=== PATIENT | male | born 1970 | race Caucasian/White ===

== ENCOUNTER 2019-07-27 05:30 | Inpatient (IN) | payer OTHER ==
[~2019-07-27] VITALS: Ht 185.4 cm; Wt 148.2 kg
[~2019-07-27 05:30] MED LIST: CeFAZolin 2 GM/DEXTROSE 50 ML IV ONE; RINGERS SOLUTION,LACTATED 1,000 ML IV ONE
[2019-07-27] MEDS ORDERED: CeFAZolin 2 GM/DEXTROSE 50 ML IV ONE (06:00)
[2019-07-27] MEDS ORDERED: RINGERS SOLUTION,LACTATED 1,000 ML IV ONE (06:00)
[2019-07-27] MEDS ORDERED: AMLO1TAB15 PO (06:12)
[2019-07-27 06:17] LABS: BASOPHILS % (AUTO) 1.2 % (0.0-2.0); EOSINOPHILS % (AUTO) 2.6 % (1.0-6.0); HEMATOCRIT 42.2 % (41-53); HEMOGLOBIN 14.9 g/dL (13.5-17.5); LYMPHOCYTES # (AUTO) 1.3 K/uL (1.0-4.8); LYMPHOCYTES % (AUTO) 36.6 % (22.0-44.0); MEAN CORPUSCULAR HGB CONC 35.2 G/dL (31.0-37.0); MEAN CORPUSCULAR VOLUME 88 fL (80-100); MONOCYTES # (AUTO) 0.4 K/uL (0.1-1.0); NEUTROPHILS # (AUTO) 1.7 K/uL (1.8-7.7); NEUTROPHILS % (AUTO) 48.6 % (40.0-70.0); PLATELET COUNT (AUTO) 175 K/uL (150-450); RED CELL DISTRIBUTION WIDTH 13.1 % (11.5-14.5)
[2019-07-27 06:28] LABS: PROTHROMBIN TIME 10.5 SEC (9.4-11.6)
[2019-07-27] MEDS ORDERED: BUPIVACAINE HCL/PF 0.5% 30 ML VIAL ONE (06:29)
[2019-07-27] MEDS ORDERED: VANCOMYCIN HCL 1 GM/VIAL ONE (06:29)
[2019-07-27] MEDS ORDERED: BUPIVACAINE LIPOSOME/PF 1.3%-13.3MG/ML SUSPENSION 10 ML VIAL INJ ONE (06:30)
[2019-07-27 06:45] LABS: ANION GAP 7 mmol/L (8-16); CALCIUM, TOTAL 8.7 mg/dL (8.8-10.5); CARBON DIOXIDE 32 mmol/L (22-29); CHLORIDE 105 mmol/L (98-107); CREATININE 0.78 mg/dL (0.60-1.30); GLOMERULAR FILTR. RATE CALC > 60 mL/min (>60); GLUCOSE,RANDOM 102 mg/dL (70-110); POTASSIUM 5.1 mmol/L (3.5-5.1); SODIUM SERUM 144 mmol/L (136-145); UREA NITROGEN, BLOOD 21 mg/dL (7-18)
[2019-07-27 06:50] LABS: ALANINE AMINOTRANSFERASE 45 U/L (12-78); ALBUMIN 3.6 g/dL (3.4-5.0); ALKALINE PHOSPHATASE 64 U/L (46-116); ASPARTATE AMINOTRANSFERASE 23 U/L (15-37); BILIRUBIN,TOTAL 0.3 mg/dL (0.1-1.0); TOTAL PROTEIN, SERUM 7.2 g/dL (6.4-8.2)
[2019-07-27] MEDS ORDERED: ZOLPIDEM TARTRATE 10 MG TABLET PO PRN ×2 (07:45→08:43)
[2019-07-27] MEDS ORDERED: ONDANSETRON HCL 4 MG/2 ML VIAL IVP PRN ×2 (07:45→08:15)
[2019-07-27] MEDS ORDERED: BENZOCAINE/MENTHOL LOZENGE PO PRN (07:45)
[2019-07-27] MEDS ORDERED: MAG HYDROX/AL HYDROX/SIMETH 30 ML SUSP UDCUP PO PRN (07:45)
[2019-07-27] MEDS ORDERED: DiphenhydrAMINE HCL 50 MG/ML VIAL IVP PRN (07:45)
[2019-07-27] MEDS ORDERED: FentaNYL CITRATE-PF 100 MCG/2 ML VIAL IVP PRN (08:15)
[2019-07-27] MEDS ORDERED: MEPERIDINE-PF 25 MG/ML VIAL IVP PRN (08:15)
[2019-07-27] MEDS ORDERED: CYCLOBENZAPRINE HCL 10 MG TABLET PO PRN (08:15)
[2019-07-27] MEDS ORDERED: OxyCODONE HCL 5 MG IR TABLET PO PRN (08:15)
[2019-07-27] MEDS ORDERED: ZOLPIDEM TARTRATE 5 MG TABLET PO PRN (08:15)
[2019-07-27] MEDS ORDERED: HYDROmorphone 2 MG/ML SYRINGE IVP PRN (08:15)
[2019-07-27] MEDS ORDERED: MICROFIBRILLAR COLLAGEN 1 GM PACKAGE TP ONE (08:56)
[2019-07-27] MEDS ORDERED: GELATIN SPONGE,ABSORBABLE 100 MM TP ONE (08:58)
[2019-07-27] MEDS ORDERED: THROMBIN, BOVINE 20000 UNITS/VIAL POWDER TP ONE (08:59)
[2019-07-27 10:56] VITALS: BP 134/81
[2019-07-27] MEDS ORDERED: INFLUENZA VIRUS VACCINE QVS 2019-20 (3YR+)/PF 60 MCG/0.5 ML SYRINGE IM ONE (11:15)
[2019-07-27] MEDS: HYDROmorphone 2 MG/ML SYRINGE IVP PRN ×3 (11:53→21:35)
[2019-07-27] MEDS ORDERED: SODIUM CHLORIDE 0.9% 500 ML IV ONE (13:10)
[2019-07-27] MEDS: ACETAMINOPHEN 1000 MG/ISO-OSM 100 ML IV SCH ×2 (13:11→20:02)
[2019-07-27 16:09] VITALS: BP 122/77
[2019-07-27] MEDS ORDERED: OXYGEN THERAPY IH SCH ×2 (20:00)
[2019-07-27 20:04] VITALS: BP 122/65
[2019-07-28 00:01] VITALS: BP 123/75
[2019-07-28] MEDS: ACETAMINOPHEN 1000 MG/ISO-OSM 100 ML IV SCH (02:13)
[2019-07-28] MEDS ORDERED: FentaNYL CITRATE-PF 100 MCG/2 ML VIAL IVP ONE (04:44)
[2019-07-28] MEDS ORDERED: ROCURONIUM BROMIDE 10 MG/ML 5 ML VIAL IVP ONE (04:44)
[2019-07-28] MEDS ORDERED: SUCCINYLCHOLINE CHLORIDE 20 MG/ML 10 ML VIAL IVP ONE (04:44)
[2019-07-28] MEDS ORDERED: ONDANSETRON HCL 4 MG/2 ML VIAL IVP ONE (04:44)
[2019-07-28] MEDS ORDERED: MIDAZOLAM HCL 2 MG/2 ML VIAL IVP ONE (04:44)
[2019-07-28] MEDS ORDERED: LIDOCAINE/PF 2% 5 ML VIAL IM ONE (04:44)
[2019-07-28] MEDS ORDERED: PROPOFOL 1% 20 ML VIAL IVP ONE (04:44)
[2019-07-28] MEDS ORDERED: DEXAMETHASONE SOD PHOS 4 MG/ML VIAL IVP ONE (04:44)
[2019-07-28] MEDS ORDERED: KETOROLAC TROMETHAMINE 60 MG/2 ML VIAL IM ONE (04:44)
[2019-07-28 05:35] VITALS: BP 113/68
[2019-07-28 07:00] VITALS: BP 119/63
[2019-07-28] MEDS ORDERED: OxyCODONE HCL/ACETAMINOPHEN 10-325 MG TABLET PO PRN (08:00)
[2019-07-28] MEDS: HYDROmorphone 2 MG/ML SYRINGE IVP PRN (08:23)
[2019-07-28 11:00] VITALS: BP 108/52
== END 2019-07-28 15:30 | disposition home or self-care (01) | DRG 519 ==
LOC: SURGERY 05:30 → 4E 05:31 → OBSVTOIN 05:32 → EDSTATUS 07:30
PROVIDERS: ADMIT Orthopaedic Surgery Orthopaedic Surgery of the Spine; ATTEND Orthopaedic Surgery Orthopaedic Surgery of the Spine
PROC: 01NB0ZZ Release Lumbar Nerve, Open Approach (ICD-10-PCS; 2019-07-27)
PROC: 00NY0ZZ Release Lumbar Spinal Cord, Open Approach (ICD-10-PCS; principal; 2019-07-27 07:30)
DX: M48.061 Spinal stenosis, lumbar region without neurogenic claudication (principal); Z68.41 Body mass index [BMI] 40.0-44.9, adult; E66.01 Morbid (severe) obesity due to excess calories
CPT/HCPCS: 87081; 93005; 97116; 97161; 97165; 97530; 97535; G0238; G0378; J0131; J0330; J0690; J1100; J1170; J1885; J2250; J2405; J2704; J3010; J3370; J3490; J7040; J7120